=== PATIENT | male | born 1995 | race Caucasian/White ===

== ENCOUNTER 2019-08-21 17:41 | Emergency (ER) | payer MEDICAID, OTHER ==
[2019-08-21] MEDS ORDERED: Zofran 4 MG/2 ML VIAL IV ONE (18:22)
[2019-08-21] MEDS ORDERED: Sodium Chloride 0.9% 1000 ML 1,000 ML IV STA (18:22)
[2019-08-21 18:54] LABS: Absolute Neutrophil Ct (ANC) 11.82 (1.4-6.9); BASOPHIL % 0.1 % (0.0-0.4); Basophil (Absolute #) 0.02 (0-0.4); Eosinophil % 0.5 % (0.00-5.0); Eosinophil (Absolute #) 0.07 (0-0.5); Hematocrit 45.8 % (42-50); Hemoglobin 15.4 gm/dl (12.5-18.0); Lymphocyte (Absolute #) 1.43 (1.0-4.6); Lymphocytes % 10.2 % (24.0-44.0); Mean Cell Volume 83.4 fl (78-100); Mean Corpuscular Hemoglobin 28.1 pg (26-32); Mean Corpuscular Hgb Concent. 33.6 g/dl (32-36); Mean Platelet Volume 10.8 fl (7.5-11.0); Monocyte (Absolute #) 0.72 (0.0-1.3); Monocytes % 5.1 % (0.0-12.0); Neutrophil % 84.1 % (36.0-66.0); Platelet Count 233 K/mm3 (150-450); Red Blood Count 5.49 M/mm3 (4.1-5.6); Red Cell Distribution Width 13.3 % (11.5-14.0); White Blood Count 14.1 K/mm3 (4.0-10.5)
[2019-08-21] MEDS ORDERED: Sodium Chloride 0.9% 1000 ML 1,000 ML ONE (19:16)
[2019-08-21] MEDS ORDERED: Zofran 4 MG/2 ML VIAL ONE (19:16)
[2019-08-21 19:23] VITALS: BP 142/65; PULSE 67; O2SAT 99
[2019-08-21 19:31] LABS: ALBUMIN 4.7 g/dL (3.5-5.0); ALKALINE PHOSPHATASE 92 U/L (38-126); ANION GAP 13.7 MEQ/L (5-15); BLOOD UREA NITROGEN 14 mg/dL (9-20); CHLORIDE 101 mmol/L (98-107); Calcium 9.6 mg/dL (8.4-10.2); Carbon Dioxide 30 mmol/L (22-30); Creatinine 1 1.03 mg/dL (0.66-1.25); Glucose 119 mg/dL (74-106); LIPASE 52 U/L (23-300); Potassium 3.9 mmol/L (3.5-5.1); SGOT/AST 28 U/L (17-59); SGPT/ALT 22 U/L (0-50); SODIUM 140 mmol/L (137-145); Total Protein 8.3 g/dL (6.3-8.2)
--- NOTE | 2019-08-21 19:59 | XRAY ---
Exam: CT of the head without IV contrast from 08/21/2019. CTDI: 53.92 mGy Comparison: CT the head without and with IV contrast from 10/16/2014. Indication: 24-year-old male with dizziness, no history of trauma. Technique: Axial non-IV contrast images were obtained through the brain. Reconstructed coronal and sagittal images were created and reviewed. Findings: The lateral and third ventricles appear of unremarkable size. 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 The fourth ventricle is not enlarged. There is no evidence of hydrocephalus. No focal mass effect or midline shift is seen. There is no evidence of intracranial bleed or abnormal extra-axial fluid collection. No focal low-attenuation lesions are seen to suggest an infarct. The pisano matter-white matter interfaces appear unremarkable. The cortical sulci appear unremarkable. The calvarium of the skull appears intact. The visualized paranasal sinuses appear clear. The mastoid air cells are clear without effusion. The middle ear cavities appear grossly unremarkable. The orbits appear unremarkable. Impression: 1. 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 There is no evidence of hydrocephalus or focal mass effect. 2. No acute intracranial bleed or other acute intracranial process is seen.
--- NOTE | 2019-08-21 20:43 | ERPHSYRPT ---
- History of Present Illness Time Seen by Provider: 08/21/19 18:00 Source: patient Exam Limitations: no limitations Patient Subjective Stated Complaint: PT states "I am sick. I am dizzy and blurred vision. I just do not feel well." Triage Nursing Assessment: Pt presented alert and oriented X 3, skin pwd. PT able to speak in clear full sentecnes pt in no apparent respiratory distress. PT able to ambulate with assistance. Pt hands dirts Physician History: 24 years old male working at the [employer] presented in the ER with chief complaint of sudden onset sensation of heat, feeling dizzy, lightheaded and started vomiting. Patient has 3-4 episodes of nonprojectile, nonbilious vomiting but no hematemesis. He is feeling dizzy and lightheaded and feels as if he is going to pass out but he did not an actual. Is complaining of generalized weakness and fatigue along with sweating all over. Is also complaining of blurry vision earlier which is improved now. Patient reports happening this for the last couple of days and gets better with oral fluid intake. Patient report he does not drink a whole lot of water but lot of Mountain Dew. No numbness tingling or focal weakness reported. No chest pain palpitations or shortness of breath. Timing/Duration: day(s) (2), intermittent, improved Severity: moderate Modifying Factors: Improves With: other (Working in heat) Associated Symptoms: nausea, vomiting, abdominal pain, loss of appetite, malaise , No syncope Allergies/Adverse Reactions: No Known Drug Allergies Allergy (Verified 08/21/19 18:04) Home Medications: No Reportable Medications [No Reported Medications] 08/21/19 [History] Hx Tetanus, Diphtheria Vaccination/Date Given: No Hx Influenza Vaccination/Date Given: No Hx Pneumococcal Vaccination/Date Given: No Immunizations Up to Date: Yes Travel Risk - International Travel Have you traveled outside of the country in past 3 weeks: No - Coronavirus Screening Close contact with a COVID-19 positive Pt in past 14-21 Days: No - Review of Systems Constitutional: Fatigue Eyes: Vision Changes Ears, Nose, & Throat: No Symptoms Respiratory: No Symptoms Cardiac: No Symptoms Abdominal/Gastrointestinal: Abdominal Pain, Nausea, Vomiting Genitourinary Symptoms: No Symptoms Musculoskeletal: Myalgias Skin: No Symptoms Neurological: Headache, No Focal Weakness Psychological: No Symptoms Endocrine: No Symptoms Hematologic/Lymphatic: No Symptoms Immunological/Allergic: No Symptoms - Past Medical History Pertinent Past Medical History: No - Past Surgical History Past Surgical History: Yes Other Surgical History: appi. wisdom teeth - Social History Smoking Status: Current every day smoker How long have you smoked: years Exposure to second hand smoke: Yes Drug Use: marijuana Patient Lives Alone: No - Nursing Vital Signs Nursing Vital Signs: Initial Vital Signs Temperature 98.2 F 08/21/19 17:59 Pulse Rate 88 08/21/19 17:59 Respiratory Rate 18 08/21/19 17:59 Blood Pressure 153/84 08/21/19 17:59 O2 Sat by Pulse Oximetry 100 08/21/19 17:59 Pain Scale Pain Intensity 0 - Physical Exam General Appearance: no apparent distress Eye Exam: PERRL/EOMI, eyes nml inspection Ears, Nose, Throat Exam: normal ENT inspection, TMs normal, pharynx normal Neck Exam: normal inspection, non-tender, supple, full range of motion Respiratory Exam: normal breath sounds, lungs clear Cardiovascular Exam: regular rate/rhythm, normal heart sounds Gastrointestinal/Abdomen Exam: soft, normal bowel sounds, No tenderness Back Exam: normal inspection Extremity Exam: normal inspection Neurologic Exam: alert, oriented x 3, cooperative, fiberline supervisor II-XII nml as tested, normal mood/affect, nml cerebellar function, nml station & gait, sensation nml, No motor deficits, No sensory deficit Skin Exam: normal color SpO2 Interpretation: normal SpO2: 99 O2 Delivery: Room Air - Course Nursing assessment & vital signs reviewed: Yes EKG Interpreted by Me: RATE, NORMAL AXIS, NORMAL INTERVALS, Non-specific ST Changes Ordered Tests: Active Orders 24 hr Category Date Time Status EKG-ER Only STAT Care 08/21/19 18:22 Active IV Insertion STAT Care 08/21/19 18:22 Active NPO (ED) STAT Care 08/21/19 18:22 Active HEAD WITHOUT CONTRAST [CT] Stat Exams 08/21/19 18:24 Completed OBSTR/ACUTE ABDOMEN SERIES Stat Exams 08/21/19 18:24 Taken CBC W DIFF Stat Lab 08/21/19 18:07 Completed CK (IN-HOUSE) [CK-Creatinine Phosphokinase] Stat Lab 08/21/19 18:07 Completed CMP Stat Lab 08/21/19 18:07 Completed LIPASE Stat Lab 08/21/19 18:07 Completed TROPONIN Q3H Lab 08/21/19 18:07 Completed TROPONIN Q3H Lab 08/21/19 21:30 Ordered TROPONIN Q3H Lab 08/22/19 00:30 Ordered TROPONIN Q3H Lab 08/22/19 03:30 Ordered TROPONIN Q3H Lab 08/22/19 06:30 Ordered UA W/RFX UR CULTURE Stat Lab 08/21/19 18:23 Uncollected Urine Triage Profile Stat Lab 08/21/19 18:23 Uncollected Medication Summary Discontinued Medications Generic Name Dose Route Start Last Admin Trade Name Freq PRN Reason Stop Dose Admin Sodium Chloride 1,000 mls @ 999 mls/hr 08/21/19 18:22 08/21/19 19:18 Sodium Chloride 0.9% 1000 Ml IV 08/21/19 19:22 999 mls/hr .Q1H1M STA Administration Sodium Chloride Confirm 08/21/19 19:16 Sodium Chloride 0.9% 1000 Ml Administered 08/21/19 19:17 Dose 1,000 mls @ ud .ROUTE .STK-MED ONE Ondansetron HCl 4 mg 08/21/19 18:22 08/21/19 19:19 Zofran 4 Mg/2 Ml Vial IV 08/21/19 18:23 4 mg STAT ONE Administration Ondansetron HCl Confirm 08/21/19 19:16 Zofran 4 Mg/2 Ml Vial Administered 08/21/19 19:17 Dose 4 mg .ROUTE .STK-MED ONE Lab/Rad Data: Laboratory Result Diagrams 08/21/19 18:07 08/21/19 18:07 Laboratory Results 08/21/19 08/21/19 08/21/19 Range/Units 18:07 18:07 18:07 WBC (4.0-10.5) K/mm3 RBC (4.1-5.6) M/mm3 Hgb (12.5-18.0) gm/dl Hct (42-50) % MCV (78-100) fl MCH (26-32) pg MCHC (32-36) g/dl RDW (11.5-14.0) % Plt Count (150-450) K/mm3 MPV (7.5-11.0) fl Gran % (36.0-66.0) % Eos # (Auto) (0-0.5) Absolute Lymphs (auto) (1.0-4.6) Absolute Monos (auto) (0.0-1.3) Lymphocytes % (24.0-44.0) % Monocytes % (0.0-12.0) % Eosinophils % (0.00-5.0) % Basophils % (0.0-0.4) % Absolute Granulocytes (1.4-6.9) Basophils # (0-0.4) Sodium 140 (137-145) mmol/L Potassium 3.9 (3.5-5.1) mmol/L Chloride 101 (98-107) mmol/L Carbon Dioxide 30 (22-30) mmol/L Anion Gap 13.7 (5-15) MEQ/L BUN 14 (9-20) mg/dL Creatinine 1.03 (0.66-1.25) mg/dL Estimated GFR > 60.0 ML/MIN Glucose 119 H (74-106) mg/dL Calcium 9.6 (8.4-10.2) mg/dL Total Bilirubin 0.50 (0.2-1.3) mg/dL AST 28 (17-59) U/L ALT 22 (0-50) U/L Alkaline Phosphatase 92 (38-126) U/L Creatine Kinase 174 H (55-170) U/L Troponin I < 0.012 (0.000-0.034) ng/mL Serum Total Protein 8.3 H (6.3-8.2) g/dL Albumin 4.7 (3.5-5.0) g/dL Lipase 52 (23-300) U/L 08/21/19 Range/Units 18:07 WBC 14.1 H (4.0-10.5) K/mm3 RBC 5.49 (4.1-5.6) M/mm3 Hgb 15.4 (12.5-18.0) gm/dl Hct 45.8 (42-50) % MCV 83.4 (78-100) fl MCH 28.1 (26-32) pg MCHC 33.6 (32-36) g/dl RDW 13.3 (11.5-14.0) % Plt Count 233 (150-450) K/mm3 MPV 10.8 (7.5-11.0) fl Gran % 84.1 H (36.0-66.0) % Eos # (Auto) 0.07 (0-0.5) Absolute Lymphs (auto) 1.43 (1.0-4.6) Absolute Monos (auto) 0.72 (0.0-1.3) Lymphocytes % 10.2 L (24.0-44.0) % Monocytes % 5.1 (0.0-12.0) % Eosinophils % 0.5 (0.00-5.0) % Basophils % 0.1 (0.0-0.4) % Absolute Granulocytes 11.82 H (1.4-6.9) Basophils # 0.02 (0-0.4) Sodium (137-145) mmol/L Potassium (3.5-5.1) mmol/L Chloride (98-107) mmol/L Carbon Dioxide (22-30) mmol/L Anion Gap (5-15) MEQ/L BUN (9-20) mg/dL Creatinine (0.66-1.25) mg/dL Estimated GFR ML/MIN Glucose (74-106) mg/dL Calcium (8.4-10.2) mg/dL Total Bilirubin (0.2-1.3) mg/dL AST (17-59) U/L ALT (0-50) U/L Alkaline Phosphatase (38-126) U/L Creatine Kinase (55-170) U/L Troponin I (0.000-0.034) ng/mL Serum Total Protein (6.3-8.2) g/dL Albumin (3.5-5.0) g/dL Lipase (23-300) U/L - Progress Progress: improved Progress Note: 08/21/19 He is given IV fluids, on reevaluation feeling much better. He has a mildly elevated CK level. 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 No acute electrolyte abnormality. I believe patient has symptoms consistent with heat exhaustion. He is advised to drink plenty of water and stay in cool environment. For Dandy- Walker he is advised to follow-up with neurosurgery. Discussed signs symptoms of worsening needing return to ER which he seems understanding. Stable for discharge. 08/21/19 22:34 Counseled pt/family regarding: lab results, diagnosis, need for follow-up, rad results, smoking cessation - Departure Departure Disposition: Home Clinical Impression: Heat exhaustion Qualifiers: Encounter type: initial encounter Qualified Code(s): T67.5XXA - Heat exhaustion , unspecified, initial encounter Condition: Stable Critical Care Time: No Referrals: DOCTOR,NO FAMILY [Primary Care Provider] - DANIEL STEPHENSON MD [ACTIVE STAFF] - (1-2 days for reevaluation) PETRA MONTEZ MD [NON-STAFF PHY W/O PRIVILEGES] - Follow Up with PCP/3 days () Instructions: Vomiting -- Adult Additional Instructions: Drink plenty of fluids. Stay in a cool environment. Take Tylenol as needed. Avoid exertional activities or going out in the heat. Follow-up with neurosurgery for Dandy-Walker. Return to ER for any worsening.
--- NOTE | 2019-08-23 09:53 | XRAY ---
Exam: Acute obstructive series from 08/21/2019. Comparison: None. Indication: Nausea and vomiting. Findings: Upright PA chest film reveals a normal heart size and contour. The [place] and mediastinal structures appear unremarkable. Some scattered bilateral perihilar and parenchymal calcified granulomas are seen consistent with old granulomatous disease. No infiltrates, vascular congestion, pneumothorax, or pleural fluid is seen. EKG leads are seen. There is a mild mid thoracic dextroscoliosis. 2 supine images and an upright image of the abdomen were obtained. The bowel gas pattern appears nonspecific. There is no evidence of bowel obstruction. There are a few scattered air-fluid levels within the lower abdomen and upper pelvis within nondilated bowel. There is no free intraperitoneal air. A single surgical clip is seen overlying the mid right abdomen. No hepatosplenomegaly is seen. No suspicious abdominal calcifications are seen. The bones appear intact. Impression: 1. Nonspecific bowel gas pattern with a few scattered air-fluid levels within nondilated bowel within the lower central abdomen and upper pelvis. This does not suggest bowel obstruction. 2. No free intraperitoneal air is seen. 3. Old healed granulomatous disease. No acute cardiopulmonary disease is seen.
== END 2019-08-21 22:38 | disposition home or self-care (01) ==
LOC: ED 17:41
DX: T67.5XXA Heat exhaustion, unspecified, initial encounter (principal)
CPT/HCPCS: 36415; 70450; 74022; 80053; 82550; 83690; 84484; 85025; 93005; 96360; 96374; 99284; J2405